=== PATIENT | female | born 1955 | race Caucasian/White ===

== ENCOUNTER 2018-11-11 10:41 | Day surgery (SDC) | payer OTHER ==
[~2018-11-11] VITALS: Ht 162.6 cm; Wt 93.0 kg
[~2018-11-11 10:41] MED LIST: CHOL10003 PO; CIPROFLOXACIN 0.3% OPHTH SOLUTION 5ML BOTTLE. OS ONE; CRESTOR10 MG PO; HYDROmorphone 2 MG/ML VIAL IV PRN; IV RINGERS,LACTATED 1000ML 1,000 ML IV SCH; LIDOCAINE 1% PF 2 ML VIAL. ID PRN; LIDOCAINE 2% JELLY 6ML IN APPLICATOR. MM SCH; METF10007 PO; MORPHINE SULFATE 2 MG/ML VIAL. IV PRN; ONDANSETRON PF 4 MG/2 ML VIAL. IV PRN; PROCHLORPERAZINE 10 MG/2 ML VIAL. IV PRN; PROPARACAINE 0.5% OPHTH SOLUTION 15ML BOTTLE. OS ONE; fentaNYL PF VIAL 100 MCG/2 ML VIAL IV PRN
[2018-11-11] MEDS ORDERED: BALANCED SALT IRRIG OPHTH SOLN 15 ML BOTTLE. ONE (10:52)
[2018-11-11] MEDS ORDERED: LIDOCAINE 2% JELLY 6ML IN APPLICATOR. ONE (10:53)
[2018-11-11] MEDS ORDERED: NEO/POLYMYX/DEXAMETH OPHTH OINTMENT 3.5GM TUBE. ONE (10:53)
[2018-11-11] MEDS ORDERED: LIDOCAINE 1% PF 2 ML VIAL. ONE (10:53)
[2018-11-11] MEDS ORDERED: CHONDROIT-SOD-HYALURONATE KIT. ONE (10:53)
[2018-11-11] MEDS: PHENYLEPHRINE 10% OPHTH SOLUTION 5ML BOTTLE. OS SCH ×3 (11:22→11:37)
[2018-11-11] MEDS: CYCLOPENTOLATE 1% OPTH SOLUTION 2ML BOTTLE. OS SCH ×3 (11:37→11:47)
[2018-11-11] MEDS ORDERED: INSULIN LISPRO 100 UNIT/ML 3ML VIAL for OP,RR ONLY. SQ PRN (12:00)
[2018-11-11] MEDS ORDERED: PROPOFOL 20 ML IV ONE (12:46)
[2018-11-11] MEDS ORDERED: LIDOCAINE 2% PF 5 ML VIAL. ONE (12:46)
[2018-11-11 13:12] VITALS: BP 138/74
--- NOTE | 2018-11-11 13:50 | OP ---
DATE OF SURGERY: 11/11/2018 PREOPERATIVE DIAGNOSIS: Posterior subcapsular cataract, left eye. POSTOPERATIVE DIAGNOSIS: Posterior subcapsular cataract, left eye. PROCEDURE: Phacoemulsification with posterior chamber lens implant, left eye. ANESTHESIA: Local with MAC. DESCRIPTION OF PROCEDURE: The patient's dilating and anesthetic drops were applied in the holding room and the [place] balloon cuff used for about 10 minutes. The patient was then brought to the operating room and positioned on the table and the eye was prepped and draped in the usual sterile manner for an intraocular procedure. A lid speculum was placed between the eyelids and the operating microscope was brought into position. A paracentesis incision was made inferotemporally and 1% lidocaine was injected in the anterior chamber followed by an injection of Viscoat. A 2.4 mm temporal incision was then made and a capsulorrhexis was made which was about 5.5-6 mm in size about the dilated pupillary border. The lens nucleus was hydrodissected and then phacoemulsified without difficulty with the phaco handpiece. The cortical cleanup was done with the I/A handpiece. Provisc was then injected into the anterior chamber to insufflate the bag and a posterior chamber lens placed into the bag without difficulty. The viscoelastic was aspirated with the I/A handpiece and the eye was then pressurized by hydrating the temporal incision. The wound was checked for leaks and there were none. The eye looked good at the end of the case and the lid speculum and drape were removed and Maxitrol ointment instilled in the conjunctival sac. The eye was shielded and the patient was taken to recovery room in satisfactory condition. There were no complications. I will see the patient in 3 days in my office. I will make phone contact with her if she has any problems. K GOYO AGUIRRE MD DR: DI/hector JOB#: [id number] / [id number]
== END 2018-11-11 13:42 | disposition home or self-care (01) ==
LOC: SURG 10:41
PROVIDERS: ATTEND Ophthalmology
DX: H25.812 Combined forms of age-related cataract, left eye (principal); E11.9 Type 2 diabetes mellitus without complications; E78.5 Hyperlipidemia, unspecified; Z87.891 Personal history of nicotine dependence; Z79.84 Long term (current) use of oral hypoglycemic drugs
CPT/HCPCS: 66984; C1780; J0171; J2001; J2704